=== PATIENT | female | born 1970 | race Caucasian/White ===

== ENCOUNTER 2019-02-03 00:31 | Emergency (ER) | payer SELFPAY ==
--- NOTE | 2019-02-03 00:49 | EDM.PDOC ---
ED HPI GENERAL MEDICAL PROBLEM - General Chief Complaint: Bite:Animal, Insect Stated Complaint: ANIMAL ATTACK Time Seen by Provider: 02/03/19 00:46 - History of Present Illness INITIAL COMMENTS - FREE TEXT/NARRATIVE: HISTORY AND PHYSICAL: History of present illness: Patient's 48-year-old female presents status post animal bite when she was written by a [place] tamez that is her neighbors and in possession of her neighbor police are involved. Patient's tetanus status to be determined Review of systems: As per history of present illness and below otherwise all systems reviewed and negative. Past medical history: As per history of present illness and as reviewed below otherwise noncontributory. Surgical history: As per history of present illness and as reviewed below otherwise noncontributory. Social history: No reported history of drug or alcohol abuse. Family history: As per history of present illness and as reviewed below otherwise noncontributory. Physical exam: HEENT: Atraumatic, normocephalic, pupils reactive, negative for conjunctival pallor or scleral icterus, mucous membranes moist, throat clear, neck supple, nontender, trachea midline. Lungs: Clear to auscultation, breath sounds equal bilaterally, chest nontender. Heart: S1S2, regular, negative for clicks, rubs, or JVD. Abdomen: Soft, nondistended, nontender. Negative for masses or hepatosplenomegaly. Negative for costovertebral tenderness. Pelvis: Stable nontender. Genitourinary: Deferred. Rectal: Deferred. Extremities: Patient has multiple wounds of her right arm forearm and right thigh there is good hemostasis throughout these are of varying depths neurovascular exam in [facility] is unremarkable throughout Neuro: Awake, alert, oriented. Cranial nerves II through XII unremarkable. Cerebellum unremarkable. Motor and sensory unremarkable throughout. Exam nonfocal. Diagnostics: None Therapeutics: Patient's wounds were irrigated with copious amounts of 0.9 normal saline over wounds were closed with Steri-Strips and dressed with occlusive dressings Impression: #1 dog bite Definitive disposition and diagnosis as appropriate pending reevaluation and review of above. right arm,forearm, right thigh Pain Score (Numeric/FACES): 10 - Related Data Allergies Allergy/AdvReac Type Severity Reaction Status Date / Time No Known Allergies Allergy Verified 02/03/19 00:44 Home Meds: Home Meds . [No Known Home Meds] 02/03/19 [History] Social & Family History - Tobacco Use Smoking Status *Q: Never Smoker - Recreational Drug Use Recreational Drug Use: No ED ROS GENERAL - Review of Systems Review Of Systems: ROS reveals no pertinent complaints other than HPI. ED EXAM, ANIMAL BITE - Physical Exam Exam: See Below (See dictation) Course - Vital Signs Last Recorded V/S: Last Vital Signs Temp 36.3 C 02/03/19 00:31 Pulse 92 02/03/19 00:31 Resp 18 02/03/19 00:31 BP 134/86 02/03/19 00:31 Pulse Ox 99 02/03/19 00:31 - Orders/Labs/Meds Meds: Medications Discontinued Medications Generic Name Dose Route Start Last Admin Trade Name Cynthia PRN Reason Stop Dose Admin Lidocaine HCl Confirm 02/03/19 00:43 Xylocaine-Mpf 1% Administered 02/03/19 00:44 Dose 10 mls @ as directed .ROUTE .STK-MED ONE Departure - Departure Time of Disposition: 00:48 Disposition: Home, Self-Care 01 Condition: Good Clinical Impression: Animal bite - Discharge Information Referrals: PCP,None [Primary Care Provider] - Additional Instructions: The following information is given to patients seen in the emergency department who are being discharged to home. This information is to outline your options for follow-up care. We provide all patients seen in our emergency department with a follow-up referral. The need for follow-up, as well as the timing and circumstances, are variable depending upon the specifics of your emergency department visit. If you don't have a primary care physician on staff, we will provide you with a referral. We always advise you to contact your personal physician following an emergency department visit to inform them of the circumstance of the visit and for follow-up with them and/or the need for any referrals to a consulting specialist. The emergency department will also refer you to a specialist when appropriate. This referral assures that you have the opportunity for followup care with a specialist. All of these measure are taken in an effort to provide you with optimal care, which includes your followup. Under all circumstances we always encourage you to contact your private physician who remains a resource for coordinating your care. When calling for followup care, please make the office aware that this follow-up is from your recent emergency room visit. If for any reason you are refused follow-up, please contact the [facility] emergency department at and asked to speak to the emergency department charge nurse. Augmentin as prescribed Motrin/Tylenol as directed follow-up primary medical doctor for wound check 48 hours return as needed as discussed
[2019-02-03] MEDS ORDERED: Diphtheria,Pertussis(Acell),Tetanus Vaccine 0.5 ML Syringe IM ONE (01:03)
== END 2019-02-03 02:20 | disposition home or self-care (01) ==
LOC: MW.ED 00:31
DX: S51.851A Open bite of right forearm, initial encounter (principal); S71.151A Open bite, right thigh, initial encounter; Z23 Encounter for immunization; W54.0XXA Bitten by dog, initial encounter
CPT/HCPCS: 90471; 90715; 99283; J2001